=== PATIENT | male | born 1955 | race Caucasian/White ===

== ENCOUNTER 2018-09-15 04:43 | Inpatient (IN) ==
[2018-09-15] MEDS ORDERED: Nitroglycerin 0.4 MG TAB.SUBL SL PRN (05:08)
[2018-09-15] MEDS ORDERED: Naloxone 0.4 MG/ML INJ IVP PRN (05:08)
--- NOTE | 2018-09-15 05:20 | Internal Med History&Physical ---
Date of Encounter: 09/15/18 Time of Encounter: 05:18 Internal Medicine - H&P: HPI Chief complaint: Back/shoulder pain History of present illness: Mr. Marshall is a 63 year old male with no prior past medical history who initially presented to [facility] ED with complaints of back and neck pain. 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 He states he began experiencing a tightness between his shoulder blades radiating to the back of his neck associated with a sense of anxiety. Patient continued to work through the pain and symptoms resolved after 15 minutes. Patient went home and fell asleep while watching TV on his couch. When he woke up he again noted tightness between his shoulder blades associated with neck discomfort and headache. Pain this time was more intense associated with some nausea. No reports of actual chest pain per se. Denies any symptoms of dizziness or lightheadedness, shortness of breath or diaphoresis. Patient denies any previous medical conditions. He is not currently on any medications. He states he has never smoked. He does not drink. Does report a strong family history of heart disease stating that his father underwent bypass surgery in his mid 50s and having a brother who has had an ID. He reports having a routine physical exam last November. On arrival patient was noted to be hypertensive with initial blood pressure of 183/103. Heart rate was in the low 60s to upper 50s. Laboratory workup at [facility] was notable for a troponin of 0.08. EKG shows questionable ST elevations in the V2, V3 and V4. CTA was performed which showed no evidence of PE or dissection. Patient reportedly received heparin bolus and shortly thereafter developed symptomatic bradycardia in which his heart rate dipped into the 40s associated with nausea and feeling shaky. Patient's blood pressure also dipped down to 100/70. Patient was given an IV fluid bolus and Zofran with resolution of both. On my assessment patient was pleasant, lying in bed in no acute distress. States that his pain right now is 1 out of 10. He did state that he noted left anterior chest pain/tightness when obtaining a CTA. Past Med Surg Social Fam HX - Past Medical History Medical history: no medical history Psychiatric history: no psych history - Past Surgical History Additional surgical history: Left arm tendon repair - Social History Smoking Status: Never smoker Smokeless Tobacco Status: No Alcohol use: none Drug use: none - Family History Mother Adopted: No Twin of Family Member: Yes Living Status: Cause of : cancer Hx Family Cardiac Disorders: Yes (Bypass) Hx Family Respiratory Disorders: No Hx Family Cancer: Yes (lungs, bladder cancer) Hx Family GI Disorders: No Hx Family Genitourinary Disorders: No Hx Family Endocrine Disorder: Yes (hypoglycemia) Hx Family Musculoskeletal Disorders: No Hx Family Neuromuscular Disorders: No Hx Family Neurologic Disorders: No Hx Family HEENT Disorders: No Hx Family Autoimmune Disorders: No Hx Family Reproductive Disorders: No Hx Family Psychosocial Disorders: No Hx Family Medical Disorders: No Brother Hx Family Cardiac Disorders: Yes (ID and CABG in 50's) Father Hx Family Cardiac Disorders: Yes (ID and CABG in his 50's) - Additional Family History Additional family history: CAD in Father and Brother Internal Medicine - H&P: Meds No Known Home Drugs 09/15/18 [History] Allergy/AdvReac Type Severity Reaction Status Date / Time No Known Allergies Allergy Verified 09/15/18 07:53 All Systems PM: A 10-system review of systems was performed and is negative for pertinent findings except as documented above in the HPI. - Constitutional Constitutional: no chills, no fever(s), no night sweats - EENT Eyes: no change in vision, no discharge, no pain, no photophobia Ears: no ear discharge, no ear pain, no tinnitus Nose, mouth and throat: no dysphagia, no nasal discharge, no neck pain, no sore throat - Cardiovascular Cardiovascular ROS IM: no chest pain, no diaphoresis, no dyspnea, no lightheadedness, no palpitations, no syncope - Respiratory Respiratory: no cough, no dyspnea, no wheezing, no excessive phlegm production - Gastrointestinal Gastrointestinal: no abdominal pain, no diarrhea, no hematemesis, no hematochezia, no melena, no nausea, no vomiting - Musculoskeletal Musculoskeletal ROS IM: no numbness, no tingling - Integumentary Integumentary IM: no rash, no unusual bruising - Neurological Neurological ROS: no confusion, no convulsions, no focal weakness, no numbness, no tingling, no tremor(s) - Hematologic/Lymphatic Hematologic/Lymphatic: no easy bruising - Constitutional Vitals: Temp Pulse Resp BP Pulse Ox 97.9 F 57 12 163/107 99 09/15/18 05:11 05/10/19 05:11 09/15/18 05:11 09/15/18 05:11 09/15/18 05:11 Exam: General: Alert and oriented 3 lying in bed in no acute distress Skin:Normal color, no rash, no lesions. HEENT:EOM, pupils equal, round and reactive. Cardiovascular:Normal S1 & S2, no rubs, murmurs or gallops. No JVD. Pulse regular. Lungs:Normal breath sounds, no wheezes or crackles. Abdomen:Soft, non-tender, no rigidity. Extremities: 1-2+ pitting edema of the lower extremities bilaterally Neurological:Normal cognition and motor skills. Pulses:Carotid and radial pulses normal +2. Rest of the physical exam is non contributory - Assessment and Plan (1) Atypical chest pain Current Visit: Yes Status: Acute Assessment and plan: 63-year-old male with no past medical history and strong family history of coronary artery disease presents with back for/shoulder pain radiating to the back of the neck the setting of elevated blood pressure, elevated troponin and EKG changes concerning for an atypical presentation of ACS. EKG around midnight shows slight ST elevations in V2 V3 and V4. No prior EKG available for comparison. CTA showed no evidence of PE or dissection. Patient developed a brief episode of bradycardia with a heart rate in the 40s after receiving heparin bolus. Patient was started on heparin drip. Pain now down to a 1 out of 10 -Telemetry -We will give loading dose of aspirin -Continue with heparin drip -Will obtain echocardiogram -Cardiology consult (2) Bradyarrhythmia Current Visit: Yes Status: Acute Assessment and plan: One episode of symptomatic sinus bradycardia arrhythmia shortly after receiving heparin bolus associated with nausea and shakiness. Heart rate dipped into the 40s. Now appears resolved. Concerning for underlying ischemia given patient's elevated troponin and EKG changes. -Continue on telemetry -We will continue with heparin drip. Will hold any AV amina blocking agents for now. -Echocardiogram and cardiology evaluation to follow. (3) Severe hypertension Current Visit: Yes Status: Acute Assessment and plan: Initial blood pressure on presentation at [facility] 183/103. Patient reports no prior history of hypertension. Blood pressure appears to resolve on its own without any intervention. Blood pressure currently 160/100. Unable to give any AV amina blocking agent at this time due to episode of bradycardia. We will consider hydralazine blood pressure remains elevated. (4) Elevated troponin Current Visit: Yes Status: Acute - Time Spent With Patient Total time spent is greater than 50% in coordination of care (as documented) at patient's floor/unit and/or counseling patient:
[2018-09-15 08:20] LABS: Heparin anti-factor XA UFH 0.21 IU/mL (0.30-0.70); Prothrombin Time 11.8 Seconds (9.4-12.1)
[2018-09-15 08:23] LABS: Activated Partial Thrombo Time 55.1 Seconds (26.0-36.0)
[2018-09-15 08:43] LABS: Troponin I 5.46 ng/mL (< 0.04)
[2018-09-15 08:46] LABS: Estimated Average Glucose 105 mg/dl; Hemoglobin A1C 5.3 %
--- NOTE | 2018-09-15 08:56 | Cardiology Consult Note ---
Date of Encounter: 09/15/18 Time of Encounter: 08:50 Assessment and Plan (1) NSTEMI (non-ST elevated myocardial infarction) Current Visit: No Status: Acute Presents with back, neck, and jaw pain concerning for angina. Significant family history of CAD (Father 50's, brother 50's) and noted to have HTN. Troponin 0.08 and now 5.46. EKG showing junctional rhythm. CTA negative for PE. It does show CAD. Pt continues to have pain pain across his shoulder blades. [facility] recommended for further evaluation. R/B/A of [facility] reviewed. Patient agrees. Asa, statin. No bb due to bradycardia. Check lipids. (2) Bradyarrhythmia Current Visit: Yes Status: Acute HR avg 54. Currently SB. Avoid AV amina leana. (3) Severe hypertension Current Visit: Yes Status: Acute B/p 160/100, new diagnosis HTN. Add lisinopril. Discussion w patient/family: The assessment and plan as outlined above was discussed with the patient and/or family members who expressed understanding and agreement. All questions were answered. Thank you for involving us in the care of your patient. Please call with any questions. History of Present Illness Consult date: 09/15/18 Requesting physician: Monalisa Joiner Consult reason: angina Chief complaint: Back pain radiating to his neck starting yesterday. History of present illness: Mr. Marshall is a 63 year old male with no prior health history who presented to the ED with c/o pain across his shoulder blades radiating to his neck. His pain started yesterday as a mild pain for a few seconds. Later in the day the pain returned and was described as severe. Both times the pain occured at rest.He continues to have pain at this time. He denies SOB, chest pain, or palpitations. Denies nausea, vomiting, or diaphoresis. He was given SL NTG and states his pain intensified. His initial troponin was 0.08. EKG showed junctional rhythm with HR 38 bpm. Repeat EKG show sinus bradycardia. No acute ST changes seen. Cardiology consulted for NSTEMI. Past Med Surg Social Fam HX - Past Medical History Medical history: no medical history Psychiatric history: no psych history - Past Surgical History Additional surgical history: Left arm tendon repair - Social History Smoking Status: Never smoker Smokeless Tobacco Status: No Alcohol use: none Drug use: none - Family History Mother Adopted: No Twin of Family Member: Yes Living Status: Cause of : cancer Hx Family Cardiac Disorders: Yes (Bypass) Hx Family Respiratory Disorders: No Hx Family Cancer: Yes (lungs, bladder cancer) Hx Family GI Disorders: No Hx Family Genitourinary Disorders: No Hx Family Endocrine Disorder: Yes (hypoglycemia) Hx Family Musculoskeletal Disorders: No Hx Family Neuromuscular Disorders: No Hx Family Neurologic Disorders: No Hx Family HEENT Disorders: No Hx Family Autoimmune Disorders: No Hx Family Reproductive Disorders: No Hx Family Psychosocial Disorders: No Hx Family Medical Disorders: No Brother Hx Family Cardiac Disorders: Yes ([place] and CABG in 50's) Father Hx Family Cardiac Disorders: Yes ([place] and CABG in his 50's) Medications and Allergies No Known Home Drugs 09/15/18 [History] Allergy/AdvReac Type Severity Reaction Status Date / Time No Known Allergies Allergy Verified 09/15/18 07:53 All Systems Review: The remainder of the systems were reviewed and are negative Physical Examination Vital Signs, Last 4 Hours Temp Pulse Resp BP Pulse Ox 09/15/18 07:15 97.7 F 74 18 138/90 09/15/18 05:11 97.9 F 57 12 163/107 99 General: Conversant, No Apparent Distress HEENT: Atraumatic, Normocephaly, Mucus Membranes Moist Neck: No JVD, Normal carotid pulses Cardiac: Reg Rate and Rhythm, Normal S1 and S2, No Murmur Lungs: Normal Breath Sounds, No Wheeze, Rales, Rhonchi Neuro: Alert and responsive, No focal deficits noted Abdomen: Soft, Non-Tender Skin: No rashes noted on visualized skin Musculoskeletal: No Chest Wall Tenderness Extremities: No Clubbing, No Cyanosis, No Edema, Normal Pulses Results Lab Results 09/15/18 09/15/18 07:44 07:44 INR 1.0 APTT 55.1 H D Troponin I 5.46 H* - Imaging and Cardiology Echo: pending Cardiac cath: pending - EKG Interpretation EKG results cardiology: personally reviewed Consult Discharge Plan - Plan Referrals: NONE,PCP [Primary Care Provider] -
[2018-09-15] MEDS ORDERED: *HR* Heparin 5,000 UNIT/ML VIAL IVP PRN ×2 (10:09)
--- NOTE | 2018-09-15 10:09 | Pre-Sedation Evaluation ---
Pre-sedation evaluation - Pre-sedation checklist Date of procedure: 09/15/18 Procedure: LHC Recent Vitals: Last Vital Signs Temp 97.7 F 09/15/18 07:15 Pulse 74 09/15/18 07:15 Resp 18 09/15/18 07:15 BP 138/90 09/15/18 07:15 Pulse Ox 99 09/15/18 05:11 ASA Classification *see protocol: CLASS II-Mild systemic disease Cardiac Registry (Cardio Only) - Functional Capacity Functional Capacity: >=4 METS with symptoms - Clincal Frailty Scale Clinical Frailty Scale: Managing Well
[2018-09-15] MEDS ORDERED: Heparin 25,000 UNIT/250 ML D5W 25,000 UNIT/250 ML IV.SOLN IVC SCH (10:15)
[2018-09-15] MEDS ORDERED: *HR* Heparin 10,000 UNIT/10 ML VIAL ONE (12:29)
[2018-09-15] MEDS ORDERED: Heparin 1,000 UNITS/500 mL 500 ML ONE (12:29)
[2018-09-15] MEDS ORDERED: ISOVUE-370 200 ML INFUS..BTL ONE (12:29)
[2018-09-15] MEDS ORDERED: Nitroglycerin 1,000 MCG/10 ML VIAL IV ONE (12:29)
[2018-09-15] MEDS ORDERED: 0.9 % Sodium Chloride 2,000 ML ONE (12:30)
[2018-09-15] MEDS ORDERED: *HR* Midazolam HCl 2 MG/2 ML VIAL ONE (13:04)
[2018-09-15] MEDS ORDERED: *HR* FentaNYL (PF) 100 MCG/2 ML VIAL ONE (13:04)
[2018-09-15] MEDS ORDERED: *HR* Ticagrelor 90 MG TABLET ONE (13:47)
[2018-09-15] MEDS ORDERED: Tirofiban 12.5 MG/250ML 12.5 MG/250 ML BAG IVC SCH (14:00)
--- NOTE | 2018-09-15 14:07 | Invasive Diagnostic Lab Proc ---
Name: Salvatore Marshall Date of Study: 09/15/2018 Date: 1955 Ht: 72.0in Medical Record#: [id number] Age: 63 Wt: 262.57lb Gender: Male BSA: 2.39 Order #: [id number] BMI: 35.6 Physicians Procedure Physician: Diego Alberto MD Referring MD: Referring MD: Staff Name Position Time In Josie Campos RN Monitor 12:51 PM Katy Zapata RN Scrub 12:51 PM Alfonso Hylton RN Social Work Administrator 12:52 PM Jackie Ferguson RT (R) Scrub 01:53 PM Indications Indication Non-Stemi Procedures Performed Procedure CORONARY ARTERY ANGIO S&I PRQ CARD FLORENCE STENT W/ANGIO 1 VSL Pre-Procedure Checklist Informed consent is complete signed and on chart. H&P is on chart. ID band is on and ID verified with patient. Patient NPO for procedure The procedure was described for the patient and questions were answered. ECG is on chart. Plan of Care Patient will tolerate the procedure without complications. Adequate level of comfort will be maintained. Hemodynamics will remain stable Patient will recover from procedure without complications. Respiratory function will be maintained. Cardiac rhythm will remain stable. Patient temperature will be maintained. Patient and/or family have verbalized understanding of the procedure. Patient Education Chief Complaint/Reason for Test: Cardiac Cath Developmental Category: Adult (18-64 years) Developmentally Appropriate for Age: Yes Learning Barriers: None Education Needs: Procedure Education Method: Verbal Information Taught: Cardiac Cath Educational Evaluation: Able to repeat information Intravenous Access Time IV Size Location DC'd Fluid/Drip Rate Units RN 18g 1 05/12" Patent On Arrival 0.9NaCl ml/hr Allergies No Known Allergies Vital Signs Time BP (mmHg) HR (bpm) O2 Sat. RR (bpm) LOC 12:52 PM / % 5 = Fully awake and oriented or at pre-proc level 01:24 PM 155 / 95 58 97 % 11 01:29 PM 163 / 96 66 96 % 14 01:34 PM 155 / 95 60 96 % 20 01:39 PM 158 / 93 61 96 % 29 01:44 PM 153 / 87 62 95 % 18 01:09 PM 161 / 92 58 99 % 32 01:14 PM 160 / 95 59 95 % 13 01:19 PM 150 / 92 61 95 % 13 Procedural Medications Time Medication Dose Units Method Given By 01:10 PM Oxygen 2 L/min nasal cannula Alfonso Hylton RN 01:10 PM Versed 1 mg Intravenous Alfonso Hylton RN 01:10 PM Fentanyl 50 mcg Intravenous Alfonso Hylton RN 01:20 PM Lidocaine 2% 10 ml Subcutaneous Diego Alberto MD 01:20 PM Lidocaine 2% 9 ml Subcutaneous Diego Alberto MD 01:27 PM Heparin 5000 units Intravenous Alfonso Hylton RN 01:30 PM Aggrastat Bolus: 58 ml Intravenous Alfonso Hylton RN 01:30 PM Aggrastat 12.5mg/250ml 21 ml Intravenous Alfonso Hylton RN 01:47 PM Brilinta 180 mg Orally Katy Zapata RN ASA Classification: CLASS II- Mild systemic disease (i.e. well-controlled diabetes, hypertension, asthma, cigarette smoking) Wellington Score Preprocedure Postprocedure Activity 2- Moves 4 extremities sustained head lift Activity 2- Moves 4 extremities sustained head lift Circulation 2- SBP +/= 20 points of pre-anesthetic level Circulation 2- SBP +/= 20 points of pre-anesthetic level Consciousness 2- Awake and alert oriented x 3 Consciousness 2- Awake and alert oriented x 3 O2 Saturation 2- Able to maintain O2 satruation of 92% on room air O2 Saturation 2- Able to maintain O2 satruation of 92% on room air Respiratory 2- Able to deep breathe and cough well Respiratory 2- Able to deep breathe and cough well Total Score 10 Total Score 10 Contrast Agent: Isovue Diagnostic Contrast: 128 ml Total Contrast: 128 ml Fluoro Dose: 56 mGy Activated Clotting Time Time Seconds to Clot 01:27 PM 145 Procedure Log Time Note Enter By 12:40 PM ASA Class CLASS II- Mild systemic disease (i.e. well-controlled diabetes, hypertension, asthma, cigarette smoking) [facility] 12:51 PM Pt arrived to analyst microbiology lab 2 at 12:51 [facility] head 12:51 PM Josie Campos RN Position: Monitor Time in: 12:51 [facility] 12:52 PM Katy Zapata RN Position: Scrub Time in: 12:51 [facility] 12:52 PM Alfonso Hylton RN Position: Social Work Administrator Time in: 12:52 [facility] 12:52 PM Patient charges- Angio tray pack, Navilyst 3mm J, Pulse Oximetry and ACIST tubing and transducer kmowls head 12:52 PM Case Delayed No [facility] 12:52 PM Time: 12:52 Patient comfortable and pain free: Yes [facility] 12:52 PM Time: 12:52LOC: 5 = Fully awake and oriented or at pre-proc level [facility] 01:00 PM [facility] PM Meet and greet completed kmavis :00 PM Sign in performed according to hospital policy. Informed consent was obtained. kmavis 01:00 PM Procedure start 13:00 [facility] :06 PM Vitals capture started with the following parameters, Patient=Adult, Interval=5 min, Initial Wlmofqep=306 mmHg, Deflation Rate=5 mmHg, Cuff placed on Left Arm 01:08 PM Vitals capture started with the following parameters, Patient=Adult, Interval=5 min, Initial Ypwvmhfg=837 mmHg, Deflation Rate=5 mmHg, Cuff placed on Left Arm 01:09 PM HR=58 bpm, GPCO=336/92 mmhg, SpO2=99 %, Resp=32 B/min 01:09 PM Case Start :09 PM CathStat 01:09 PM [ Start or Stop Vital ] 01:10 PM Hair removed from procedure site in procedure lab using clippers. Bilateral groin prepped with Chloraprep by Josie Campos RN, then patient was draped. Skin intact. [facility] 01:10 PM Time: 13:10 Oxygen on at 2 L/min per nasal cannula by Alfonso Hylton RN [facility] :10 PM Time: 13:10 Versed 1 mg Intravenous Given by Alfonso Hylton RN [facility] :10 PM Time: 13:10 Fentanyl 50 mcg Intravenous Given by Alfonso Hylton RN [facility] :12 PM Recorded ECG: HR=59 Condition=Condition 1 01:13 PM Pressure channel 1 zeroed. 01:14 PM HR=59 bpm, GLRR=968/95 mmhg, SpO2=95.0 %, Resp=13 B/min, EtCO2=29 mmHg, Comment=nsr :19 PM Time out was performed according to hospital policy. Conscious sedation and anesthesia was achieved (see medication log with in this report above) [facility] :19 PM HR=61 bpm, PKQP=112/92 mmhg, SpO2=95.0 %, Resp=13 B/min, EtCO2=38 mmHg, Comment=nsr 01:20 PM Time: 13:20 10 ml Lidocaine 2% to right groin Subcutaneous Given by Diego Alberto MD kmavis : PM Time: 13:20 9 ml Lidocaine 2% to right groin Subcutaneous Given by Diego Alberto MD kmavis : PM Micro-Introducer Kit utilized for sheath placement kmavis : PM hand injected 10ml contrast to right groin kmavis : PM Access obtained by percutaneous puncture. 6Fr 10cm Terumo Hudson sheath placed in right Femoral artery. [id number] kmavis : PM 5Fr FR 4 catheter inserted over the wire [facility] kmavis : PM 0.035 145cm Navilyst 3mmJ wire [id number] kmavis : PM RCA angiography performed in multiple views. kmavis :23 PM Recorded Pressure: Ao, HR=58, Condition=Condition 1 (Aorta) Ao 147/51/104 01:24 PM HR=58 bpm, VJAV=106/95 mmhg, SpO2=97.0 %, Resp=11 B/min, EtCO2=35 mmHg 01:25 PM 6Fr XB LAD 3.5 Cordis guide catheter was used. kmavis : PM LCA angiography performed in multiple views. kmavis : PM Recorded Pressure: Ao, HR=56, Condition=Condition 1 (Aorta) Ao 160/80/112 01:27 PM At 13:27 the ACT was 145 seconds. kmavis :28 PM Time: 13:27 Heparin 5000 units Intravenous Given by Alfonso Hylton RN avis :29 PM HR=66 bpm, WCVT=327/96 mmhg, SpO2=96.0 %, Resp=14 B/min, EtCO2=26 mmHg 01:29 PM .014 [employer] [place] 180cm guide wire across target lesion- successful. reused? No kmavis :29 PM Inflation device was opened. kmavis 01:30 PM Time: 13:30 Aggrastat Bolus: 58 ml Intravenous Given by Alfonso Hylton RN Wilson pump kmavis :30 PM Time: 13:30 Aggrastat 12.5mg/250ml 21 ml Intravenous Given by Alfonso Hylton RN Wilson pump kmavis :31 PM Recorded Pressure: Ao, HR=66, Condition=Condition 1 (Aorta) Ao 146/81/109 01:31 PM 2.0 mm x 20 mm Emerge Monorail balloon across target lesion- successful. reused? No kmavis 01:32 PM Balloon inflated @ 6 isaac for 10 seconds kmavis 01:33 PM PCI lesion in Mid LAD. Pre Stenosis: 100 Pre IESHA Flow: 0: No Flow/No perfusion kmavis 01:33 PM Balloon catheter removed intact. kmavis 01:34 PM HR=60 bpm, VSDF=178/95 mmhg, SpO2=96.0 %, Resp=20 B/min, EtCO2=36 mmHg, Comment=nsr 01:34 PM 3.0mm x 20mm Cordis EluNIR drug-eluting stent across target lesion- successful Lot #[id number] kmavis 01:35 PM Coronary Dominance: right kmavis 01:35 PM Mid/Distal Left Anterior Descending Coronary Artery and diagonal branches with 100% stenosis. If graft is supplying this area, 0 % stenosis kmavis 01:36 PM Stent deployed @ 10 isaac for 17 seconds kmavis 01:36 PM Stent balloon reinflated @ 14 isaac for 10 seconds kmavis 01:36 PM Stent delivery system removed intact. kmavis 01:38 PM 3.5mm x 15mm Cordis EluNIR drug-eluting stent across target lesion- successful Lot #[id number] kmavis 01:39 PM Stent deployed @ 10 isaac for 12 seconds kmavis 01:39 PM HR=61 bpm, QGSV=174/93 mmhg, SpO2=96.0 %, Resp=29 B/min, EtCO2=26 mmHg, Comment=nsr 01:39 PM Stent balloon reinflated @ 16 isaac for 10 seconds kmavis 01:40 PM Stent delivery system removed intact. kmavis 01:40 PM Guide catheter removed intact. kmavis 01:40 PM Guide wire removed intact. kmavis 01:43 PM Procedure completed at 13:43 09/15/2018 km[facility] 01:43 PM Did you address IESHA flow and Dominance? YesCoronary Dominance: right kmavis 01:44 PM Sign out completed: Radiation Dose 470 mGy, 56.3 Gy/cm2 Fluoro Time: 6.1 Isovue 370 - 200ml contrast 128 ml given by Diego Alberto MD. Complications: None. The patient was discharged out of the photonic laboratory technician in stable condition. Sedation minutes 34. Cardiac Rehab Consult needed: No. Confirmed administered medications: Yes kmavis 01:44 PM Isovue 370 - 200ml,1 Bottle(s) used. kmavis 01:44 PM HR=62 bpm, SNDM=293/87 mmhg, SpO2=95.0 %, Resp=18 B/min 01:44 PM Arterial sheath pulled, Angio-seal closure device used and was Successful [id number] S/N. kmavis 01:44 PM Estimated Blood Loss: minimal kmavis 01:45 PM Post ECG Sinus Bradycardia [facility] 01:45 PM Post Blood Pressure 153/87 km[facility] 01:45 PM Information taught Cardiac Cath, PCI, and Angioseal kmavis 01:45 PM Education needs Procedure, Plan of Care, and Disease Process km[facility] 01:45 PM Learning barriers :None kmavis 01:45 PM Education Methods Verbal kmavis 01:45 PM Education evaluation Able to repeat information kmavis 01:45 PM Site status No bleeding/hematoma - Rt Groin as reported by Katy Zapata RN at 13:45 [facility] 01:45 PM Opsite applied kmavis 01:46 PM Plavix, Effient or Brilinta given Yes [facility] 01:47 PM Time: 13:47 Brilinta 180 mg Orally Given by Katy Zapata RN [facility] 01:47 PM Delay to floor No [facility]avis 01:47 PM Family placed in consult room. [facility] 01:47 PM Complications: None [facility]avis 01:48 PM Report given to Sonam MCKEON Pt taken to E Room #30. 13:48 [facility] 01:53 PM Jackie Ferguson RT (R) Position: Scrub Time in: 13:53 [facility] 01:55 PM Patient out of room: 13:55 [facility] Complications Complication None None Hemodynamics Pressures Site Systolic/A Wave Diastolic/V Wave Mean AO 147 51 104 AO 160 80 112 AO 146 81 109 Post Procedure Information Blood Pressure: 153/87 mmHg Rhythm: Sinus Bradycardia Post procedural instructions were given Closure Device Time Device Success/Fail 09/15/2018 1:48:00 PM Angio-Seal VIP Successful Site Checks Time Location Status Staff Sheath In? Note 01:45 PM Rt Groin No bleeding/hematoma Katy Zapata RN Pulses Time Site Pre-Procedure Post-Procedure Note Bilateral DP & PT 2+ Bilateral radial 2+ Updated by Josie Campos RN on 09/15/2018 1:56:30 PM electronically signed on 09/15/2018 1:56:59 PM with status of Final
--- NOTE | 2018-09-15 15:19 | Event Note ---
Date of Encounter: 09/15/18 Time of Encounter: 15:15 pt was examined. chest pain free. had cath done- no report on chart but as per nursing pt had 2 staents placed in LAD. had small hematoma at the site -manual pressure given and made cardio team aware.
[2018-09-15] MEDS: Aspirin 81 MG TAB.CHEW PO SCH (16:03)
[2018-09-15] MEDS: *HR* Ticagrelor 90 MG TABLET PO SCH (20:51)
[2018-09-16 07:16] LABS: Basophils % 0.3 %; Eosinophils # 0.1 K/mcL (0.0-0.6); Eosinophils % 0.4 %; Hematocrit 39.6 % (37.5-50.1); Hemoglobin 13.2 g/dL (12.9-16.9); Immature Granulocytes % 0.5 % (0-4); Lymphocytes # 1.7 K/mcL (0.6-4.6); Lymphocytes % 14.2 %; Mean Corpuscular HGB Conc 33.3 g/dL (31.6-35.5); Mean Corpuscular Hemoglobin 29.9 pg (28.0-33.3); Mean Corpuscular Volume 89.6 fL (83.0-100.0); Mean Platelet Volume 11.2 fL (9.4-12.4); Monocytes # 1.3 K/mcL (0.0-1.3); Neutrophils # 8.8 K/mcL (1.6-8.9); Platelet Count 161 K/mcL (140-400); Red Blood Count 4.42 M/mcL (4.19-5.50); Red Cell Distribution Width 12.9 % (11.5-14.5); Segmented Neutrophils % 73.6 %
[2018-09-16 07:35] LABS: BUN/Creatinine Ratio 16 (6-26); Blood Urea Nitrogen 14 mg/dL (8-23); Calcium 8.6 mg/dL (8.6-10.3); Carbon Dioxide 25 mEq/L (23-29); Chloride 108 mEq/L (98-107); Glucose 113 mg/dL (70-105); Osmolality,Calculated 289 (280-300); Potassium 3.8 mEq/L (3.5-5.1); Sodium 139 mEq/L (136-145); eGFR For Non-African Americans > 60 (> 60)
[2018-09-16] MEDS: Aspirin 81 MG TAB.CHEW PO SCH (08:51)
[2018-09-16] MEDS: *HR* Ticagrelor 90 MG TABLET PO SCH (08:51)
[2018-09-16] MEDS ORDERED: Aspirin 81 MG TAB.CHEW PO SCH (09:00)
[2018-09-16 11:31] VITALS: BP 111/76
--- NOTE | 2018-09-16 12:16 | Cardiology Progress Note ---
Date of Encounter: 09/16/18 Time of Encounter: 10:00 Assessment and Plan (1) NSTEMI (non-ST elevated myocardial infarction) Current Visit: No Status: Acute Presents with back, neck, and jaw pain concerning for angina. Significant family history of CAD (Father 50's, brother 50's) and noted to have HTN. Troponin elevated greater than 73. EKG showing junctional rhythm. CTA negative for PE. It does show CAD. [facility] recommended and completed on 09/15/2018. Patient received PTCA and drug- eluting stent to the LAD. No significant disease otherwise. TTE shows preserved EF with noted wall motion abnormality in the septum. He denies recurrent chest pain. Importance of taking aspirin and Brilinta uninterrupted for 1 year reviewed with patient and family. Continue statin and low-dose beta leana. Healthy heart diet and exercise. Heart rate did impro ve. Cardiac rehabilitation ordered. Outpatient follow-up will be coordinated with [place] cardiology. Cardiology will sign off. (2) Bradyarrhythmia Current Visit: Yes Status: Acute Patient initially presented with junctional rhythm and sinus bradycardia. Heart rate did improve overnight. Average heart rate of 63 beats per minutes. No significant pauses seen. He denies dizziness or lightheadedness. Continue to monitor. (3) Severe hypertension Current Visit: Yes Status: Acute B/p 160/100, new diagnosis HTN. Lisinopril added and blood pressure improved. Discussion w patient/family: The assessment and plan as outlined above was discussed with the patient and/or family members who expressed understanding and agreement. All questions were answered. Thank you for involving us in the care of your patient. Please call with any questions. Subjective Principal diagnosis: NSTEMI Interval history: Mr. Marshall is resting in his room. Family at bedside. He denies chest pain or shortness of breath. Objective Vital Signs, Last 4 Hours Pulse Resp BP Pulse Ox 09/16/18 11:28 56 15 111/76 97 General: Conversant, No Apparent Distress HEENT: Atraumatic, Normocephaly, Mucus Membranes Moist Neck: No JVD, Normal carotid pulses Cardiac: Reg Rate and Rhythm, Normal S1 and S2, No Murmur Lungs: Normal Breath Sounds, No Wheeze, Rales, Rhonchi Neuro: Alert and responsive, No focal deficits noted Abdomen: Soft, Non-Tender Skin: No rashes noted on visualized skin Musculoskeletal: No Chest Wall Tenderness Extremities: No Clubbing, No Cyanosis, No Edema, Normal Pulses, Other (Mild ecchymosis noted around right femoral groin access site. Area is soft and no hematoma identified. Dressing removed in small amount of oozing noted at site. Dry bandage applied.) Results 09/16/18 06:47 09/16/18 06:47 Lab Results 09/15/18 09/15/18 09/16/18 12:36 19:06 06:47 WBC 12.0 H D Hgb 13.2 D Hct 39.6 Plt Count 161 Sodium Potassium Chloride Carbon Dioxide BUN Creatinine Glucose Calcium Troponin I 20.92 H* > 73.00 H* 09/16/18 06:47 WBC Hgb Hct Plt Count Sodium 139 Potassium 3.8 Chloride 108 H Carbon Dioxide 25 BUN 14 Creatinine 0.86 Glucose 113 H Calcium 8.6 Troponin I - Imaging and Cardiology Echo: report reviewed Cardiac cath: report reviewed - EKG Interpretation EKG results cardiology: personally reviewed Consult Discharge Plan - Plan Referrals: NONE,PCP [Primary Care Provider] -
--- NOTE | 2018-09-16 13:14 | Discharge Summary ---
- NOTES TO OUTPATIENT PROVIDER Notes to Outpatient Provider: Follow with cardiology in 1 week. Follow-up with PCP in 2-3 days Orders not resulted at time of discharge: Pending orders 09/15/18 05:09 ECG 12 lead ECG [ECG] Routine 09/15/18 13:50 ECG 12 lead ECG [ECG] Routine 09/16/18 07:00 ECG 12 lead ECG [ECG] Routine 09/17/18 04:00 BMP [Basic Metabolic Panel] AM 0400 Complete Blood Count [HEME] AM 0400 09/18/18 04:00 BMP [Basic Metabolic Panel] AM 0400 Complete Blood Count [HEME] AM 0400 09/19/18 04:00 BMP [Basic Metabolic Panel] AM 0400 Complete Blood Count [HEME] AM 0400 Date of Encounter: 09/16/18 Time of Encounter: 13:10 - Discharge Diagnosis (1) NSTEMI (non-ST elevated myocardial infarction) Priority: Primary Status: Acute Assessment and Plan: Presents with back, neck, and jaw pain concerning for angina. Significant family history of CAD (Father 50's, brother 50's) and noted to have HTN. Troponin elevated greater than 73. EKG showing junctional rhythm. CTA negative for PE. It does show CAD. [facility] completed on 09/15/2018. Patient received PTCA and drug-eluting stent to the LAD. No significant disease otherwise. TTE shows preserved EF with noted wall motion abnormality in the septum. Will discharge patient on statin, low-dose beta leana, aspirin and Brilinta uninterrupted for 1 year reviewed with patient and family. Healthy heart diet and exercise. Cardiac rehabilitation ordered. Outpatient follow-up will be coordinated with [place] cardiology. (2) Bradyarrhythmia Priority: Primary Status: Acute Assessment and Plan: One episode of symptomatic sinus bradycardia arrhythmia shortly after receiving heparin bolus associated with nausea and shakiness. Heart rate dipped into the 40s. Patient initially presented with junctional rhythm and sinus bradycardia. Heart rate did improve overnight. Average heart rate of 63 beats per minutes. No significant pauses seen. He denies dizziness or lightheadedness. As per cardiology recommendation ,will discharge patient on low-dose of beta leana and further monitoring with PCP and cardiology outpatient. (3) Severe hypertension Priority: Primary Status: Acute Assessment and Plan: Newly diagnosed. A started lisinopril and better controlled blood pressure. Close monitoring with help of PCP. Cardiac diet. Hospital course: Mr. Marshall is a 63 year old male patient was transferred to [facility] from [place] with complaint of back neck and chest pain. Protozoologist was consulted. Please see detail in diagnosis section of discharge summary. At the time of discharge patient clinically hemodynamically stable, ambulating, tolerating oral diet with no chest pain, still slight sinus bradycardia with no symptoms. Needs to follow with cardiology in PCP for further adjustment in medication. Discharge discussed with: patient, family, nurse - Time Spent with Patient Total time spent providing and/or coordinating discharge services: Time spent: Less than 30 minutes - Discharge Medications Prescriptions: New Aspirin 81 mg PO DAILY #30 tab.chew Ticagrelor [Brilinta] 90 mg PO BID #60 tablet Atorvastatin [Lipitor] 80 mg PO HS #60 tablet Metoprolol [Lopressor] 12.5 mg PO BID #30 tablet Nitroglycerin 0.4 mg SL Q5MPRN PRN #30 tab.subl PRN Reason: Chest Pain Lisinopril [Zestril] 10 mg PO DAILY #30 tablet Home Medications: Aspirin 81 mg PO DAILY #30 tab.chew 09/16/18 [Rx] Atorvastatin [Lipitor] 80 mg PO HS #60 tablet 09/16/18 [Rx] Lisinopril [Zestril] 10 mg PO DAILY #30 tablet 09/16/18 [Rx] Metoprolol [Lopressor] 12.5 mg PO BID #30 tablet 09/16/18 [Rx] Nitroglycerin 0.4 mg SL Q5MPRN PRN #30 tab.subl 09/16/18 [Rx] Ticagrelor [Brilinta] 90 mg PO BID #60 tablet 09/16/18 [Rx] Allergies/Adverse Reactions: Allergy/AdvReac Type Severity Reaction Status Date / Time No Known Allergies Allergy Verified 09/15/18 07:53 Date of admission: 09/15/18 05:08 Primary care physician: PCP NONE Consults: 09/15/18 05:08 Consult to Cardiology [CONS] Routine Comment: Consulting Provider: Cardiology [place] Reason for Consult: elevated troponin; bradyarhythmia Call Completed: No 09/15/18 13:50 Consult to Cardiac Rehabilitation-Phase1 [CONS] Routine Comment: Reason for Consult: AMI Call Completed: Yes Consult to Nurse Navigator [CONS] Routine Comment: - Constitutional Vitals: Temp Pulse Resp BP Pulse Ox 97.9 F 56 15 111/76 97 09/16/18 07:26 09/16/18 11:28 09/16/18 11:28 09/16/18 11:28 09/16/18 11:28 Exam: General: Conversant, No Apparent Distress HEENT: Atraumatic, Normocephaly, Mucus Membranes Moist Neck: No JVD, Normal carotid pulses Cardiac: Reg Rate and Rhythm, Normal S1 and S2, No Murmur Lungs: Normal Breath Sounds, No Wheeze, Rales, Rhonchi Neuro: Alert and responsive, No focal deficits noted Abdomen: Soft, Non-Tender Skin: No rashes noted on visualized skin Musculoskeletal: No Chest Wall Tenderness Extremities: Mild ecchymosis noted around right femoral groin access site. Area is soft and no hematoma identified. Dressing removed in small amount of oozing noted at site. Dry bandage applied.) - Patient Status Disposition: Home, Self-Care Condition: Good Overall status at discharge: patient is back to baseline - Discharge Instructions Follow Up With: NONE,PCP [Primary Care Provider] - - Diet and Activity Activity: as per the cardiac rehab Diet: low fat, low cholesterol, low salt diet
== END 2018-09-16 17:48 | disposition home or self-care (01) | DRG 247 ==
LOC: 2NENU
PROVIDERS: ADMIT Internal Medicine; ATTEND Internal Medicine